=== PATIENT | male | born 1945 | race Caucasian/White ===

== ENCOUNTER 2022-11-21 12:56 | Observation (INO) ==
[2022-11-21] MEDS ORDERED: DEXTROSE 50%-WATER ABBOJECT IVP ONE (13:03)
[2022-11-21] MEDS ORDERED: DEXTROSE 50%-WATER ABBOJECT ONE (13:04)
[2022-11-21] MEDS ORDERED: LACTATED RINGERS 1,000 ML IV STA (13:04)
[2022-11-21 13:28] LABS: BASOPHILS # (AUTO) 0.1 K/uL (0-0.2); BASOPHILS % (AUTO) 0.7 % (0.0-3.0); EOSINOPHILS # (AUTO) 0.2 K/ul (0.0-0.7); EOSINOPHILS % (AUTO) 3.1 % (0.0-7.0); HEMATOCRIT 39.4 % (42.0-52.0); HEMOGLOBIN 12.4 g/dl (14.0-18.0); IMMATURE GRANULOCYTE % (AUTO) 0.1 % (0.0-5.0); LYMPHOCYTES # (AUTO) 1.8 K/uL (0.60-3.4); LYMPHOCYTES % (AUTO) 26.3 (10.0-50.0); MEAN CORPUSCULAR HEMOGLOBIN 28.6 pg (27.0-31.0); MEAN CORPUSCULAR HGB CONC 31.5 (31.8-35.4); MEAN CORPUSCULAR VOLUME 90.8 fl (80.0-94.0); MONOCYTES # (AUTO) 0.3 K/uL (0.4-2.0); MONOCYTES % (AUTO) 4.9 (0-10); NEUTROPHILS # (AUTO) 4.4 K/ul (2.0-6.9); NEUTROPHILS % (AUTO) 64.9 % (42.2-75.2); PLATELET COUNT 175 10^3/uL (140-440); RDW COEFFICIENT OF VARIATION 12.6 % (11.6-14.8); RED BLOOD COUNT 4.34 10^6/ul (4.70-6.10); WHITE BLOOD COUNT 6.78 K/ul (4.2-10.2)
--- NOTE | 2022-11-21 13:43 | ED.PDOC ---
General ED Provider: Dr. JOHNY TORRES Chief Complaint: Altered Mental Status Stated Complaint: Patient is a 77-year-old male who is brought by EMS with complaints of altered mental status as reported by SOUND EDITOR today. Patient patient is a resident of a local [place] [facility] facility with a history of diabetes hyperlipidemia coronary disease and hypertension also has a history of ALS. He is Accu-Chek was noted to be in the 70s and has been given to you 50 IV push. According to the nurse at the [place] [facility] patient was less responsive, lethargic and diaphoretic prior to EMS arrival. Time Seen by Provider: 11/21/22 13:02 Information Source: Custodial and EMT Primary Care Provider: OBIE SOLIS MD Nursing and Triage Documentation Reviewed and Agree: Yes Neurological Complaint Exam Altered Mental Status Complaint/Exam Current Mental Status: Unresponsiveness Last Known Well: This morning Onset: Gradual Duration: Few hours Symptoms Are: Still present Current Severity: Severe Character: Reports Lethargy Aggravating: Reports Unknown Alleviating: Reports None Glascow Coma Scale (see protocol): 8 Nystagmus Present: No Gait: Unable Signs of Injury: Present Normal findings Differential Diagnoses: Hypoglycemia, Sepsis and TIA Review of Systems Review Of Systems Constitutional: Reports Other (Unobtainable due to patient being unable to answer questions.) All Other Systems: Other (Unobtainable) [facility] Medical History (Updated 11/21/22 @ 18:14 by KIERSTEN BOWEN RN) Amyotrophic lateral sclerosis (ALS) G12.21 - Amyotrophic lateral sclerosis (ICD-10) Atherosclerosis I70.90 - Unspecified atherosclerosis (ICD-10) BPH (benign prostatic hyperplasia) N40.0 - Benign prostatic hyperplasia without lower urinary tract symptoms (ICD-10) Bradycardia R00.1 - Bradycardia, unspecified (ICD-10) GERD (gastroesophageal reflux disease) K21.9 - Gastro-esophageal reflux disease without esophagitis (ICD-10) Hyperlipemia E78.5 - Hyperlipidemia, unspecified (ICD-10) Hypertension I10 - Essential (primary) hypertension (ICD-10) Liver cancer C22.9 - Malignant neoplasm of liver, not specified as primary or secondary (ICD-10) Parkinsons disease G20 - Parkinson's disease (ICD-10) Polyosteoarthritis M15.9 - Polyosteoarthritis, unspecified (ICD-10) Type 2 diabetes mellitus E11.9 - Type 2 diabetes mellitus without complications (ICD-10) Weakness R53.1 - Weakness (ICD-10) Family History Other No known health problems Physical Exam Physical Exam Appearance: Reports Ill-appearing Ill-appearing: Moderate Pain Distress: Not Applicable Eyes: Reports MICKIE, EOMI and Conjunctiva clear ENT: Reports Nose normal and Dry mucosa Neck: Supple Respiratory: Reports Airway patent and Breath sounds clear Cardiovascular: Reports RRR, Pulses normal, No rub and No murmur GI/: Reports Soft Musculoskeletal: Reports ROM intact and No edema Skin: Reports Warm and Dry Neurological: Reports Alert to pain Psychiatric: Reports Not Examined Critical Care Note Critical Care Note Total Critical Care Time (mins): 40 Comments: 1343 PM patient much more responsive after an amp of D50 given and has been sent to the CT scanner. 1558 hrs. patient unchanged despite getting IV fluids and Narcan. Granddaughter in the room. Explained that there were no findings to explain his symptoms that he may just have encephalopathy or progression of his ALS. Patient however appears to be comfortable and tolerable to admitting him to the hospitalist to observe see whether he improves. If it continues to get worse patient may be appropriate for hospice. Patient is a DNR Course Course 11/21/22 13:22 11/21/22 13:22 Orders, Labs, Meds: Lab Review 11/21/22 11/21/22 11/21/22 13:22 13:25 14:16 WBC 6.78 RBC 4.34 L Hgb 12.4 L Hct 39.4 L MCV 90.8 MCH 28.6 MCHC 31.5 L RDW Coeff of Francy 12.6 Plt Count 175 Immature Gran % (Auto) 0.1 Neut % (Auto) 64.9 Lymph % (Auto) 26.3 [place] % (Auto) 4.9 Eos % (Auto) 3.1 Baso % (Auto) 0.7 Neut # (Auto) 4.4 Lymph # (Auto) 1.8 [place] # (Auto) 0.3 L Eos # (Auto) 0.2 Baso # (Auto) 0.1 Immature Gran # (Auto) 0.0 Puncture Site [place] Excess 5.3 H O2 Saturation 91.1 L ABG pH 7.42 ABG pCO2 46.0 H ABG pO2 60.0 L ABG HCO3 29.8 H ABG Total CO2 31.2 H Liam Test Pos Hemoglobin 1.4 Oxyhemoglobin 90.7 L Carboxyhemoglobin 1.4 Total Hemoglobin 12.5 Sodium 139.4 Potassium 3.95 Chloride 101.9 Carbon Dioxide 28.3 Anion Gap 13.15 BUN 14.4 Creatinine 0.88 Estimated GFR (MDRD) 84.00 BUN/Creatinine Ratio 16.36 Glucose 152.7 H Lactic Acid 0.86 Calcium 9.36 Total Bilirubin 1.29 AST 22.3 ALT 8.4 Alkaline Phosphatase 79.4 Total Creatine Kinase < 20.0 L Troponin I < 0.012 Total Protein 7.07 Albumin 3.84 Globulin 3.23 Albumin/Globulin Ratio 1.18 Procalcitonin 0.09 H Urine Color Urine Clarity Urine pH Ur Specific [place] Urine Protein Urine Glucose (UA) Urine Ketones Urine Blood Urine Nitrite Urine Bilirubin Urine Urobilinogen Ur Leukocyte Esterase SARS CoV-[address] Negative 11/21/22 14:25 WBC RBC Hgb Hct MCV MCH MCHC RDW Coeff of Francy Plt Count Immature Gran % (Auto) Neut % (Auto) Lymph % (Auto) [place] % (Auto) Eos % (Auto) Baso % (Auto) Neut # (Auto) Lymph # (Auto) [place] # (Auto) Eos # (Auto) Baso # (Auto) Immature Gran # (Auto) Puncture Site Base Excess O2 Saturation ABG pH ABG pCO2 ABG pO2 ABG HCO3 ABG Total CO2 Liam Test Hemoglobin Oxyhemoglobin Carboxyhemoglobin Total Hemoglobin Sodium Potassium Chloride Carbon Dioxide Anion Gap BUN Creatinine Estimated GFR (MDRD) BUN/Creatinine Ratio Glucose Lactic Acid Calcium Total Bilirubin AST ALT Alkaline Phosphatase Total Creatine Kinase Troponin I Total Protein Albumin Globulin Albumin/Globulin Ratio Procalcitonin Urine Color Yellow Urine Clarity Clear Urine pH 5.5 Ur Specific [place] 1.020 Urine Protein Negative Urine Glucose (UA) Negative Urine Ketones Negative Urine Blood Negative Urine Nitrite Negative Urine Bilirubin Negative Urine Urobilinogen 0.2 Ur Leukocyte Esterase Negative SARS CoV-[address] Orders Category Date Time Status ABG DRAW REQUEST Stat CARDIO 11/21/22 14:09 Completed EKG-(ED ONLY) Stat CARDIO 11/21/22 13:04 Completed STRAIGHT CATH INSERTION ONCE CARE 11/21/22 13:46 Active ACCUCHECK (ED) [ED ACCUCHECK ASSESSMENT] .ONCE EMERGENCY 11/21/22 14:09 Active ED DIRECTOR OF CORPORATE SALES APPLIED .ONCE EMERGENCY 11/21/22 13:05 Active ED IV/MEDIPORT/POWERPORT .ONCE EMERGENCY 11/21/22 13:04 Active ED VITAL SIGNS Q1HR EMERGENCY 11/21/22 13:05 Completed ABG COOX Stat LAB 11/21/22 14:16 Completed BLOOD CULTURE (ED ONLY) Stat LAB 11/21/22 14:04 Received CBC W/ AUTO DIFF Stat LAB 11/21/22 13:22 Completed COMPREHENSIVE METABOLIC PANEL Stat LAB 11/21/22 13:22 Completed COVID [SARS COV-[address]] Stat LAB 11/21/22 13:25 Completed CREATINE KINASE Stat LAB 11/21/22 13:22 Completed LACTIC ACID Stat LAB 11/21/22 13:22 Completed PROCALCITONIN Stat LAB 11/21/22 13:22 Completed TROPONIN I Stat LAB 11/21/22 13:22 Completed URINALYSIS C & S IF INDICATED Stat LAB 11/21/22 14:25 Completed 0.9 % Sodium Chloride [Saline Flush] Meds 11/21/22 13:04 Active 1 syr IVF PRN PRN Dextrose 50 % in Water [Dextrose 50%-Water Abboject] Meds 11/21/22 13:04 Discontinued 50 ml .ROUTE .STK-MED ONE Dextrose 50 % in Water [Dextrose 50%-Water Abboject] Meds 11/21/22 13:03 Discontinued 50 ml IVP ONCE ONE Naloxone HCl [Narcan] Meds 11/21/22 14:26 Discontinued 0.4 mg IVP ONCE ONE Ringers Lactated Solution [Lactated Ringers] 1,000 ml Meds 11/21/22 13:04 Active IV 100 mls/hr CHEST, 1V AP ONLY Stat RADS 11/21/22 13:[address] HEAD W/O CONTRAST Stat RADS 11/21/22 13:03 Completed Medications Generic Name Dose Route Start Last Admin Trade Name Freq PRN Reason Stop Dose Admin Lactated Ringer's 1,000 mls @ 100 mls/hr 11/21/22 13:04 11/21/22 13:16 Lactated Ringers IV 11/21/22 23:03 100 mls/hr .Q10H STA Administration Morphine Sulfate 2 mg 11/21/22 17:27 Morphine Sulfate 2 Mg/Ml Syringe IVP Q6H PRN Pain Ondansetron HCl 4 mg 11/21/22 17:27 Ondansetron Hcl/Pf 4 Mg/2 Ml Sdv IVP Q6H PRN Nausea / Vomiting Sodium Chloride 1 syr 11/21/22 13:04 0.9% Sodium Chloride 10 Ml Disp.Syrin IVF PRN PRN To flush IV Discontinued Medications Generic Name Dose Route Start Last Admin Trade Name Freq PRN Reason Stop Dose Admin Dextrose 50 ml 11/21/22 13:03 11/21/22 13:15 Dextrose 50 % In Water 50 Ml Disp.Syrin IVP 11/21/22 13:04 50 ml ONCE ONE Administration Naloxone HCl 0.4 mg 11/21/22 14:26 11/21/22 14:32 Naloxone Hcl 0.4 Mg/Ml Vial IVP 11/21/22 14:27 0.4 mg ONCE ONE Administration Vital Signs: Temp Pulse Resp BP Pulse Ox O2 Flow Rate 11/21/22 14:42 58 L 14 123/70 98 3 11/21/22 13:05 99.6 F 64 14 119/67 95 3 11/21/22 13:00 99.6 F 60 14 116/68 100 Discharge Plan Discharge Patient Disposition: PLACED OBSERVATION Discharge Problem: Encephalopathy Did you review [place] [employer] for ALL controlled substances?: Not Applicable ED Provider: JOHNY TORRES Physician Progress Note: []
[2022-11-21 13:47] LABS: ALANINE AMINOTRANSFERASE 8.4 U/L (0-50); ALBUMIN 3.84 g/dL (3.5-5.0); ALKALINE PHOSPHATASE 79.4 U/L (56-119); ASPARTATE AMINO TRANSFERASE 22.3 U/L (17-59); BILIRUBIN,TOTAL 1.29 mg/dL (0.2-1.3); BLOOD UREA NITROGEN 14.4 mg/dL (9-20); CALCIUM 9.36 mg/dL (8.4-10.2); CARBON DIOXIDE 28.3 mmol/L (22-30.0); CHLORIDE 101.9 mmol/L (98-107); CREATININE 0.88 mg/dL (0.60-1.10); GLUCOSE 152.7 mg/dL (74-106); POTASSIUM 3.95 mmol/L (3.5-5.1); SODIUM 139.4 mmol/L (134.5-145); TOTAL PROTEIN 7.07 g/dL (6.3-8.2)
--- NOTE | 2022-11-21 13:47 | DI ---
EXAM: CHEST RADIOGRAPH (1 VIEW) TECHNIQUE: Frontal Chest Radiograph. HISTORY: Sepsis COMPARISON: 11/03/2019. FINDINGS: Lines, Tubes, Devices: None Lungs and Pleura: No focal consolidation. No pleural effusion. No pneumothorax. Cardiac silhouette: Normal. Bones: No acute abnormality. IMPRESSION: No acute radiographic abnormality.
[2022-11-21 13:50] LABS: CREATINE KINASE < 20.0 U/L (55-170)
[2022-11-21 14:00] LABS: TROPONIN I < 0.012 ng/ml (0.0000-0.120)
--- NOTE | 2022-11-21 14:08 | CT ---
EXAM: BRAIN CT WITHOUT CONTRAST 11/21/2022 INDICATION: Mental status. COMPARISON: CT head 10/25/2021. TECHNIQUE: Unenhanced CT of the head was performed from the skull base to the vertex. FINDINGS: No intracranial hemorrhage or extra-axial collection. No mass, mass effect or midline shift. The valverde -white matter differentiation is otherwise preserved. 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 There is generalized cerebral volume loss with compensat ory enlargement of the extra-axial spaces. There are patchy subcortical and periventricular white ma tter hypodensities, most commonly seen in chronic white matter microvascular ischemic changes. No hy drocephalus The basal cisterns are patent. The visualized paranasal sinuses and mastoid air cells a re clear. Bilateral lens replacement. The visualized osseous structures are unremarkable. IMPRESSION: - No acute intracranial hemorrhage or mass effect. Brain MRI can be obtained for further evaluation a s clinically indicated. 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 - Senescent changes. All CT scans are performed using dose optimization techniques as appropriate to the performed exam an d include at least one of the following: Automated exposure control, adjustment of the mA and/or kV according t o size, and the use of iterative reconstruction technique.
[2022-11-21 14:17] LABS: SARS COV-2 RNA RAPID NAAT NEGATIVE (NEGATIVE)
[2022-11-21 14:22] LABS: ABG O2 HGB 90.7 % (95-100); ABG PH 7.42 (7.35-7.45); BEecf 5.3 (-2.0-3.0); COHb 1.4 (0.5-1.5); HCO3 29.8 (21-28); MetHb 1.4 (0-1.5); TCO2 31.2 (19-24); sO2 91.1 % (94-98); tHb 12.5 g/dl (11.7-17.4)
[2022-11-21] MEDS ORDERED: NARCAN IVP ONE (14:26)
[2022-11-21 15:21] LABS: BILIRUBIN,URINE Negative (NEGATIVE); CLARITY,URINE Clear (CLEAR); COLOR,URINE Yellow (YELLOW); GLUCOSE, URINE (UA) Negative (NEGATIVE); KETONES,URINE Negative (NEGATIVE); LEUKOCYTE ESTERASE ,URINE Negative (NEGATIVE); NITRITE,URINE Negative (NEGATIVE); PH,URINE 5.5 (5-9); PROTEIN,URINE Negative (NEGATIVE); URINE, BLOOD Negative (NEGATIVE); UROBILINOGEN,URINE 0.2 (0.2)
[2022-11-21] MEDS ORDERED: MORPHINE 2 MG/ML SYRINGE IVP PRN (17:27)
[2022-11-21] MEDS ORDERED: ZOFRAN 4 MG/2 ML IVP PRN (17:27)
[2022-11-21 17:49] VITALS: BMI 21.4
--- NOTE | 2022-11-21 20:51 | PCM ---
Date of Service Date Seen by Provider: 11/21/22 Time Seen by Provider: 17:00 Admit Day/Time Admission Date: 11/21/22 Reason for Admission Chief Complaint: ENCEPHALOPATHY Hospital Provider Hospital Provider: WILLA [place]ACOBS[place] [facility] [place] Primary Care Physician: OBIE SOLIS MD History of Present Illness History of Present Illness: 77 yo male presented to the ER from local SNF for change in responsiveness, lethargy, and diaphoresis. Patient has pmh of ALS that was diagnosed approx. 2 months ago. During the time frame, patient has not been able to ambulate or perform ADLS other than eating and drinking. Typically, he is able to carry on full conversations. Today, the nursing staff at the SNF found him unable to speak and not responsive to stimuli. ER work-up was negative. No signs of infection to indicate metabolic encephalopathy. Upon my exam, he was lethargic, responsive to painful stimuli, and was attempting to respond to verbal commands intermittently. Unable to answers ques tions or provide ROS Case Discussed With Case Discussed With: Patient's case was discussed with the ER Physicians, Dr. Baldwin [facility] Medical History (Updated 11/21/22 @ 18:14 by KIERSTEN BOWEN RN) Amyotrophic lateral sclerosis (ALS) G12.21 - Amyotrophic lateral sclerosis (ICD-10) Atherosclerosis I70.90 - Unspecified atherosclerosis (ICD-10) BPH (benign prostatic hyperplasia) N40.0 - Benign prostatic hyperplasia without lower urinary tract symptoms (ICD-10) Bradycardia R00.1 - Bradycardia, unspecified (ICD-10) GERD (gastroesophageal reflux disease) K21.9 - Gastro-esophageal reflux disease without esophagitis (ICD-10) Hyperlipemia E78.5 - Hyperlipidemia, unspecified (ICD-10) Hypertension I10 - Essential (primary) hypertension (ICD-10) Liver cancer C22.9 - Malignant neoplasm of liver, not specified as primary or secondary (ICD-10) Parkinsons disease G20 - Parkinson's disease (ICD-10) Polyosteoarthritis M15.9 - Polyosteoarthritis, unspecified (ICD-10) Type 2 diabetes mellitus E11.9 - Type 2 diabetes mellitus without complications (ICD-10) Weakness R53.1 - Weakness (ICD-10) Family History Other No known health problems Allergies Allergies Allergy/AdvReac Type Severity Reaction Status Date / Time ranitidine AdvReac Verified 11/21/22 13:13 Sulfa (Sulfonamide AdvReac Verified 11/21/22 13:13 Antibiotics) Current Medications Home Medications aspirin 81 mg chewable tablet 81 mg PO DAILY 11/21/22 [History Confirmed 11/21/22 Last Taken Unknown] atorvastatin 10 mg tablet 10 mg PO BEDTIME 11/21/22 [History Confirmed 11/21/22 Last Taken Unknown] carbidopa 25 mg-levodopa 100 mg tablet 1 tab PO TID 11/21/22 [History Confirmed 11/21/22 Last Taken Unknown] gabapentin 300 mg capsule 300 mg PO BID 11/21/22 [History Confirmed 11/21/22 Last Taken Unknown] glipizide 5 mg tablet 5 mg PO DAILY 11/21/22 [History Confirmed 11/21/22 Last Taken Unknown] levetiracetam 500 mg tablet 500 mg PO BID 11/21/22 [History Confirmed 11/21/22 Last Taken Unknown] metformin 500 mg tablet 500 mg PO BID 11/21/22 [History Confirmed 11/21/22 Last Taken Unknown] omeprazole 40 mg capsule,delayed release 40 mg PO DAILY 11/21/22 [History Confirmed 11/21/22 Last Taken Unknown] oxybutynin chloride 5 mg tablet,extended release 24 hr 5 mg PO DAILY 11/21/22 [History Confirmed 11/21/22 Last Taken Unknown] pregabalin 75 mg capsule 75 mg PO BID 11/21/22 [History Confirmed 11/21/22 Last Taken Unknown] quetiapine 25 mg tablet 25 mg PO BEDTIME 11/21/22 [History Confirmed 11/21/22 Last Taken Unknown] spironolactone 25 mg tablet 12.5 mg PO DAILY 11/21/22 [History Confirmed 11/21/22 Last Taken Unknown] tamsulosin 0.4 mg capsule 0.4 mg PO DAILY 11/21/22 [History Confirmed 11/21/22 Last Taken Unknown] verapamil 180 mg tablet,extended release 180 mg PO BEDTIME 11/21/22 [History Confirmed 11/21/22 Last Taken Unknown] Home Lactated Ringer's (Lactated Ringers) 1,000 mls @ 100 mls/hr IV .Q10H STA Stop: 11/21/22 23:03 Last Admin: 11/21/22 13:16 Dose: 100 mls/hr Morphine Sulfate (Morphine Sulfate 2 Mg/Ml Syringe) 2 mg IVP Q6H PRN PRN Reason: Pain Ondansetron HCl (Ondansetron Hcl/Pf 4 Mg/2 Ml Sdv) 4 mg IVP Q6H PRN PRN Reason: Nausea / Vomiting Sodium Chloride (0.9% Sodium Chloride 10 Ml Disp.Syrin) 1 syr IVF PRN PRN PRN Reason: To flush IV Discontinued Medications Dextrose (Dextrose 50 % In Water 50 Ml Disp.Syrin) 50 ml IVP ONCE ONE Stop: 11/21/22 13:04 Last Admin: 11/21/22 13:15 Dose: 50 ml Naloxone HCl (Naloxone Hcl 0.4 Mg/Ml Vial) 0.4 mg IVP ONCE ONE Stop: 11/21/22 14:27 Last Admin: 11/21/22 14:32 Dose: 0.4 mg Physical examination Most Recent Vital Signs: Most Recent Vital Signs Temperature 98 F 11/21/22 17:16 Temperature Source Oral 11/21/22 17:16 Temperature Source Infrared 11/21/22 13:05 Pulse Rate 61 11/21/22 17:16 Respiratory Rate 14 11/21/22 17:16 Blood Pressure 123/70 11/21/22 14:42 Blood Pressure Left Arm 124/75 11/21/22 17:16 Blood Pressure Position Supine 11/21/22 17:16 O2 Sat by Pulse Oximetry 98 11/21/22 17:16 Oxygen Delivery Method Nasal Cannula 11/21/22 17:52 Oxygen Flow Rate 3 11/21/22 17:52 Height 5 ft 9 in 11/21/22 17:16 Weight 145 lb 8 oz 11/21/22 17:16 Appearance: Positive No Apparent Distress, Ill-Appearing and Thin Skin: Positive Other (pale, dry) HEENT: Positive Normocephalic, Atraumatic and PERRLA Neck: Positive Supple and Midline Trachea Chest/Lungs: Positive Symmetrical With Equal Breath Sounds, Clear to Auscultation Bilaterally and Good Air Movement all 4 Lung Tanner Heart: Positive RRR and Pulses Normal GI/: Positive Soft, Nontender, Bowel Sounds Normal and No Distention Musculoskeletal: Positive Decreased ROM and Other (tremors with movement, rigid) Neurological: Positive Sensation Intact, Motor intact, Disorinted and Other (lethargic) Labs This Visit Labs This Visit: Labs This Visit 11/21/22 11/21/22 11/21/22 13:22 13:25 14:16 WBC 6.78 RBC 4.34 L Hgb 12.4 L Hct 39.4 L MCV 90.8 MCH 28.6 MCHC 31.5 L RDW Coeff of Francy 12.6 Plt Count 175 Immature Gran % (Auto) 0.1 Neut % (Auto) 64.9 Lymph % (Auto) 26.3 [place] % (Auto) 4.9 Eos % (Auto) 3.1 Baso % (Auto) 0.7 Neut # (Auto) 4.4 Lymph # (Auto) 1.8 [place] # (Auto) 0.3 L Eos # (Auto) 0.2 Baso # (Auto) 0.1 Immature Gran # (Auto) 0.0 Puncture Site [place] Excess 5.3 H O2 Saturation 91.1 L ABG pH 7.42 ABG pCO2 46.0 H ABG pO2 60.0 L ABG HCO3 29.8 H ABG Total CO2 31.2 H Liam Test Pos Hemoglobin 1.4 Oxyhemoglobin 90.7 L Carboxyhemoglobin 1.4 Total Hemoglobin 12.5 Sodium 139.4 Potassium 3.95 Chloride 101.9 Carbon Dioxide 28.3 Anion Gap 13.15 BUN 14.4 Creatinine 0.88 Estimated GFR (MDRD) 84.00 BUN/Creatinine Ratio 16.36 Glucose 152.7 H Lactic Acid 0.86 Calcium 9.36 Total Bilirubin 1.29 AST 22.3 ALT 8.4 Alkaline Phosphatase 79.4 Total Creatine Kinase < 20.0 L Troponin I < 0.012 Total Protein 7.07 Albumin 3.84 Globulin 3.23 Albumin/Globulin Ratio 1.18 Procalcitonin 0.09 H Urine Color Urine Clarity Urine pH Ur Specific [place] Urine Protein Urine Glucose (UA) Urine Ketones Urine Blood Urine Nitrite Urine Bilirubin Urine Urobilinogen Ur Leukocyte Esterase SARS CoV-[address] Negative 11/21/22 14:25 WBC RBC Hgb Hct MCV MCH MCHC RDW Coeff of Francy Plt Count Immature Gran % (Auto) Neut % (Auto) Lymph % (Auto) [place] % (Auto) Eos % (Auto) Baso % (Auto) Neut # (Auto) Lymph # (Auto) [place] # (Auto) Eos # (Auto) Baso # (Auto) Immature Gran # (Auto) Puncture Site Base Excess O2 Saturation ABG pH ABG pCO2 ABG pO2 ABG HCO3 ABG Total CO2 Liam Test Hemoglobin Oxyhemoglobin Carboxyhemoglobin Total Hemoglobin Sodium Potassium Chloride Carbon Dioxide Anion Gap BUN Creatinine Estimated GFR (MDRD) BUN/Creatinine Ratio Glucose Lactic Acid Calcium Total Bilirubin AST ALT Alkaline Phosphatase Total Creatine Kinase Troponin I Total Protein Albumin Globulin Albumin/Globulin Ratio Procalcitonin Urine Color Yellow Urine Clarity Clear Urine pH 5.5 Ur Specific [place] 1.020 Urine Protein Negative Urine Glucose (UA) Negative Urine Ketones Negative Urine Blood Negative Urine Nitrite Negative Urine Bilirubin Negative Urine Urobilinogen 0.2 Ur Leukocyte Esterase Negative SARS CoV-[address] Imaging Imaging: EXAM: BRAIN CT WITHOUT CONTRAST 11/21/2022 INDICATION: Mental status. COMPARISON: CT head 10/25/2021. TECHNIQUE: Unenhanced CT of the head was performed from the skull base to the vertex. FINDINGS: No intracranial hemorrhage or extra-axial collection. No mass, mass effect or midline shift. The valverde-white matter differentiation is otherwise preserved. 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 There is generalized cerebral volume loss with compensatory enlargement of the extra-axial spaces. There are patchy subcortical and periventricular white matter hypodensities, most commonly seen in chronic white matter microvascular ischemic changes. No hydrocephalus The basal cisterns are patent. The visualized paranasal sinuses and mastoid air cells are clear. Bilateral lens replacement. The visualized osseous structures are unremarkable. IMPRESSION: - No acute intracranial hemorrhage or mass effect. Brain MRI can be obtained for further evaluation as clinically indicated. 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 - Senescent changes. EXAM: CHEST RADIOGRAPH (1 VIEW) TECHNIQUE: Frontal Chest Radiograph. HISTORY: Sepsis COMPARISON: 11/03/2019. FINDINGS: Lines, Tubes, Devices: None Lungs and Pleura: No focal consolidation. No pleural effusion. No pneumothorax. Cardiac silhouette: Normal. Bones: No acute abnormality. IMPRESSION: No acute radiographic abnormality. Review Statement Review Statement: I have independently reviewed and interpreted the labs/EKGs/imaging that were ordered by the ER provider. I have reviewed all outside records that are available currently in our EMR including imaging/notes/labs from previous visits. Plan Plan: 1. Amyotrophic lateral sclerosis, advancement - NPO until swallowing can be evaluated, morphine Q4H prn for pain, holding all PO medications due to condition, telemetry, hospice consult in am, oxygen - wears 3L continuous via NC 2. Parkinson's disease 3. Dementia 4. DMT2 5. Hyperlipidemia 6. HTN ER work-up negative for cause of AMS. Daughter/POA states patient has declined rapidly over the last month and a half. Was recently admitted to [facility] and rehab on 11/13. She reports that the patient voiced his wishes to her prior this and reported he wants no aggressive measures taken. Plan is to consult Hospice in the am when social work is available. DVT Prophylaxis: Comfort measures only Time Spent: Greater than 80 minutes spent with patient, 50% of the time spent with this patient was devoted to counseling and coordination of care. [facility] minutes spent discussing advance care planning. Disposition: DNR Comfort measures only Admit to: Med/Surg Observation Discussed Plan of Care with Dr. Kennedy Hook Medications Medication Orders: Medications Ordered Category Date Time Status 0.9 % Sodium Chloride [Saline Flush] Meds 11/21/22 13:04 Active 1 syr IVF PRN PRN Morphine Sulfate [Morphine 2 mg/ml Syringe] Meds 11/21/22 17:27 Active 2 mg IVP Q6H PRN Ondansetron HCl/Pf [Zofran 4 mg/2 ml] Meds 11/21/22 17:27 Active 4 mg IVP Q6H PRN Ringers Lactated Solution [Lactated Ringers] 1,000 ml Meds 11/21/22 13:04 Active IV 100 mls/hr
[2022-11-22 10:27] VITALS: BP 124/73; PULSE 66; RESP 17; TEMP 97.8
--- NOTE | 2022-11-22 11:36 | DCSUM ---
Admission Date Admission Date: 11/21/22 Discharge Date Discharge Date: 11/22/22 Admission Diagnosis Admission Diagnosis: 1. Amyotrophic lateral sclerosis, advancement 2. Parkinson's disease 3. Dementia 4. DMT2 5. Hyperlipidemia 6. HTN Discharge Diagnosis Discharge Diagnosis: 1. Amyotrophic lateral sclerosis, advancement - Regressing 2. Parkinson's disease - Regressing 3. Dementia - Regressing 4. DMT2 - Stable 5. Hyperlipidemia - Stable 6. HTN - Stable Hospital Provider Hospital Provider: WILLA JACOBS, [facility] [place] [facility] Primary Care Physician: OBIE SOLIS MD Summary of History and Physical Summary of History and Physical: 77 yo male presented to the ER from local SNF for change in responsiveness, lethargy, and diaphoresis. Patient has pmh of ALS that was diagnosed approx. 2 months ago. During the time frame, patient has not been able to ambulate or perform ADLS other than eating and drinking. Typically, he is able to carry on full conversations. Today, the nursing staff at the SNF found him unable to speak and not responsive to stimuli. ER work-up was negative. No signs of inf ection to indicate metabolic encephalopathy. Upon my exam, he was lethargic, responsive to painful stimuli, and was attempting to respond to verbal commands intermittently. Unable to answers questions or provide ROS Hospital Course Subjective: Overnight, patient has continued to remain in lethargic and mostly unresponsive state. Still responsive to painful stimuli. Remaining vitally stable. Since his decline in ALS, he has required continuous oxygen at 3L via NC. ER work-up negative for cause of AMS. Daughter/POA states patient has declined rapidly over the last month and a half. Was recently admitted to [facility] on 11/13. She reports that the patient voiced his wishes to her prior this and reported he wants no aggressive measures taken. [facility]. Recommend to keep patient NPO including medications. May allow sips of water if family desires. Appearance: Ill-appearing HEENT: MMM and Supple CVS: No Murmur Abdomen: Soft Respiratory: No Dyspnea Extremities: No Edema Vital Signs: Most Recent Vital Signs Temperature 97.8 F 11/22/22 10:00 Temperature Source Temporal Artery Scan 11/22/22 10:00 Temperature Source Infrared 11/21/22 13:05 Pulse Rate 66 11/22/22 10:00 Respiratory Rate 17 11/22/22 10:00 Blood Pressure 124/73 11/22/22 10:00 Blood Pressure Mean 90 11/22/22 10:00 Blood Pressure Left Arm 124/75 11/21/22 17:16 Blood Pressure Location Right Arm 11/22/22 10:00 Blood Pressure Position Supine 11/22/22 10:00 O2 Sat by Pulse Oximetry 92 L 11/22/22 10:00 Oxygen Delivery Method Room Air 11/22/22 10:00 Oxygen Flow Rate 3 11/22/22 10:00 Height 5 ft 9 in 11/21/22 17:16 Weight 145 lb 8 oz 11/21/22 17:16 Telemetry Type Remote Telemetry 11/22/22 07:00 Telemetry Monitoring Continues 11/22/22 07:00 Telemetry Heart Rate 58 L 11/22/22 07:00 Telemetry SPO2 97 11/22/22 01:00 EKG SC Interval 0.14 11/22/22 07:00 EKG QRS Interval 0.06 11/22/22 07:00 Telemetry Strip Reading sb 11/22/22 07:00 Lab Results Last 24 Hours: 11/21/22 11/21/22 11/21/22 14:25 14:16 13:25 WBC RBC Hgb Hct MCV MCH MCHC RDW Coeff of Francy Plt Count Immature Gran % (Auto) Neut % (Auto) Lymph % (Auto) Brooks % (Auto) Eos % (Auto) Baso % (Auto) Neut # (Auto) Lymph # (Auto) Brooks # (Auto) Eos # (Auto) Baso # (Auto) Immature Gran # (Auto) Puncture Site [employer] Excess 5.3 H O2 Saturation 91.1 L ABG pH 7.42 ABG pCO2 46.0 H ABG pO2 60.0 L ABG HCO3 29.8 H ABG Total CO2 31.2 H Liam Test Pos Hemoglobin 1.4 Oxyhemoglobin 90.7 L Carboxyhemoglobin 1.4 Total Hemoglobin 12.5 Sodium Potassium Chloride Carbon Dioxide Anion Gap BUN Creatinine Estimated GFR (MDRD) BUN/Creatinine Ratio Glucose Lactic Acid Calcium Total Bilirubin AST ALT Alkaline Phosphatase Total Creatine Kinase Troponin I Total Protein Albumin Globulin Albumin/Globulin Ratio Procalcitonin Urine Color Yellow Urine Clarity Clear Urine pH 5.5 Ur Specific Ruth 1.020 Urine Protein Negative Urine Glucose (UA) Negative Urine Ketones Negative Urine Blood Negative Urine Nitrite Negative Urine Bilirubin Negative Urine Urobilinogen 0.2 Ur Leukocyte Esterase Negative SARS CoV-[address] Negative 11/21/22 13:22 WBC 6.78 RBC 4.34 L Hgb 12.4 L Hct 39.4 L MCV 90.8 MCH 28.6 MCHC 31.5 L RDW Coeff of Francy 12.6 Plt Count 175 Immature Gran % (Auto) 0.1 Neut % (Auto) 64.9 Lymph % (Auto) 26.3 Brooks % (Auto) 4.9 Eos % (Auto) 3.1 Baso % (Auto) 0.7 Neut # (Auto) 4.4 Lymph # (Auto) 1.8 Brooks # (Auto) 0.3 L Eos # (Auto) 0.2 Baso # (Auto) 0.1 Immature Gran # (Auto) 0.0 Puncture Site Base Excess O2 Saturation ABG pH ABG pCO2 ABG pO2 ABG HCO3 ABG Total CO2 Liam Test Hemoglobin Oxyhemoglobin Carboxyhemoglobin Total Hemoglobin Sodium 139.4 Potassium 3.95 Chloride 101.9 Carbon Dioxide 28.3 Anion Gap 13.15 BUN 14.4 Creatinine 0.88 Estimated GFR (MDRD) 84.00 BUN/Creatinine Ratio 16.36 Glucose 152.7 H Lactic Acid 0.86 Calcium 9.36 Total Bilirubin 1.29 AST 22.3 ALT 8.4 Alkaline Phosphatase 79.4 Total Creatine Kinase < 20.0 L Troponin I < 0.012 Total Protein 7.07 Albumin 3.84 Globulin 3.23 Albumin/Globulin Ratio 1.18 Procalcitonin 0.09 H Urine Color Urine Clarity Urine pH Ur Specific Ruth Urine Protein Urine Glucose (UA) Urine Ketones Urine Blood Urine Nitrite Urine Bilirubin Urine Urobilinogen Ur Leukocyte Esterase SARS CoV-[address] Discharge Instructions Discharge Planning: Discharge Planning > 40 minutes If patient is discharged with left ventricular systolic dysfunction: NA Discharged with a beta norberto? [] If no, why not? [] Discharged with an roberta/arb? [] If no, why not? [] Hospice NPO including medications. May allow sips of water if family wishes Comfort measures Discharge Medications: Medications at Discharge (Home Meds & RX) aspirin 81 mg chewable tablet 81 mg PO DAILY 11/21/22 atorvastatin 10 mg tablet 10 mg PO BEDTIME 11/21/22 carbidopa 25 mg-levodopa 100 mg tablet 1 tab PO TID 11/21/22 gabapentin 300 mg capsule 300 mg PO BID 11/21/22 glipizide 5 mg tablet 5 mg PO DAILY 11/21/22 levetiracetam 500 mg tablet 500 mg PO BID 11/21/22 metformin 500 mg tablet 500 mg PO BID 11/21/22 omeprazole 40 mg capsule,delayed release 40 mg PO DAILY 11/21/22 oxybutynin chloride 5 mg tablet,extended release 24 hr 5 mg PO DAILY 11/21/22 pregabalin 75 mg capsule 75 mg PO BID 11/21/22 quetiapine 25 mg tablet 25 mg PO BEDTIME 11/21/22 spironolactone 25 mg tablet 12.5 mg PO DAILY 11/21/22 tamsulosin 0.4 mg capsule 0.4 mg PO DAILY 11/21/22 verapamil 180 mg tablet,extended release 180 mg PO BEDTIME 11/21/22 Discharge Plan Discharge Discharge Orders: Discharge Patient (ONCE); Ordered 11/22/22 Ordered By: CHAVO AVILA Activity Restrictions/Additional Instructions: Hospice care NPO including medications Comfort measures Instructions: Hospice Care (GEN), Amyotrophic Lateral Sclerosis (GEN) Care Plan Goals: Problem: Alteration in Comfort/Pain Goal: Manage pain at a tolerable level Instructions: Monitor character, location and intensity Express expectations of pain relief Pain medication as ordered Position for maximal comfort Pain management prior to activities Patient Disposition: TRANSFER SNF Prescriptions: Continued aspirin 81 mg tablet,chewable 81 mg PO DAILY atorvastatin 10 mg tablet 10 mg PO BEDTIME gabapentin 300 mg capsule 300 mg PO BID glipizide 5 mg tablet 5 mg PO DAILY levetiracetam 500 mg tablet 500 mg PO BID metformin 500 mg tablet 500 mg PO BID omeprazole 40 mg capsule,delayed release(DR/EC) 40 mg PO DAILY carbidopa-levodopa 25-100 mg tablet 1 tab PO TID oxybutynin chloride 5 mg tablet extended release 24hr 5 mg PO DAILY pregabalin 75 mg capsule 75 mg PO BID quetiapine 25 mg tablet 25 mg PO BEDTIME spironolactone 25 mg tablet 12.5 mg PO DAILY tamsulosin 0.4 mg capsule 0.4 mg PO DAILY verapamil 180 mg tablet extended release 180 mg PO BEDTIME Did you review [place] [employer] for ALL controlled substances?: No Discussed opioids are addictive and Narcan is available by prescription or from pharmacy.: No Condition: Fair
== END 2022-11-22 13:20 ==
LOC: ED 12:56 → MEDSURG B 16:13 → INTOOBSV 16:14 → SCU 17:50
PROVIDERS: ADMIT Hospitalist; ATTEND Nurse Practitioner Family